=== PATIENT | male | born 1975 | race Asian ===

== ENCOUNTER 2023-05-14 05:00 | Emergency (ER) | payer MEDICAID ==
[~2023-05-14] VITALS: Ht 157.5 cm; Wt 65.0 kg
[2023-05-14 06:57] VITALS: BP 126/86; PULSE 88; RESP 16; TEMP 97.3; O2SAT 98
== END 2023-05-14 07:37 | disposition home or self-care (01) ==
LOC: ER 05:02
DX: I10 Essential (primary) hypertension (principal); F17.200 Nicotine dependence, unspecified, uncomplicated; F14.90 Cocaine use, unspecified, uncomplicated; Z72.89 Other problems related to lifestyle
CPT/HCPCS: 99283